=== PATIENT | female | born 1995 ===

== ENCOUNTER 2017-08-22 01:41 | Emergency (ER) | payer MEDICAID ==
[2017-08-22 02:04] VITALS: BMI 28.8
[2017-08-22 02:06] VITALS: BP 111/68; PULSE 72; RESP 16; TEMP 97.8; O2SAT 99
[2017-08-22] MEDS ORDERED: Naproxen 500 MG TAB PO STA (02:47)
[2017-08-22] MEDS ORDERED: Naproxen 500 MG TAB PO ONE (03:17)
--- NOTE | 2017-08-22 04:47 | ED PDOC ---
Upper Extremity Pain/Injury Time Seen by Provider: 08/22/17 02:25 Chief Complaint (Nursing): Finger,Hand,&Wrist Chief Complaint (Provider): Finger,Hand,&Wrist History Per: Patient History/Exam Limitations: no limitations Onset/Duration Of Symptoms: Hrs (x2) Current Symptoms Are (Timing): Still Present Additional Complaint(s): 21 year old female, right-hand dominant, presents to ED with a complaint of right sided wrist pain radiating to right hand status post fall while rollerskating 2 hours prior to arrival. Patient rates pain currently at 8/10. She denies taking any medication for relief, head injury, LOC or other extremity pain. LMP: 07/29/17. PMD: Alisson Grimaldo MD Past Medical History Reviewed: Historical Data, Nursing Documentation, Vital Signs Vital Signs: Last Vital Signs Temp 97.8 F 08/22/17 02:04 Pulse 72 08/22/17 02:04 Resp 16 08/22/17 02:04 BP 111/68 08/22/17 02:04 Pulse Ox 99 08/22/17 02:04 - Medical History PMH: Asthma - Surgical History Surgical History: No Surg Hx - Family History Family History: States: Unknown Family Hx - Social History Current smoker - smoking cessation education provided: No Alcohol: None Drugs: Denies - Home Medications Home Medications: Ambulatory Orders Medication Instructions Recorded Naproxen 500 mg PO BID PRN #20 tab 08/22/17 traMADol [Ultram] 50 mg PO Q6 PRN #12 tab 08/22/17 - Allergies Allergies/Adverse Reactions: Allergies Allergy/AdvReac Type Severity Reaction Status Date / Time No Known Allergies Allergy Verified 08/22/17 02:04 Review of Systems ROS Statement: Except As Marked, All Systems Reviewed And Found Negative Musculoskeletal: Positive for: Hand Pain (right-sided with wrist pain). Negative for: Arm Pain, Leg Pain Neurological: Negative for: Other (head injury or LOC) Physical Exam - Reviewed Nursing Documentation Reviewed: Yes Vital Signs Reviewed: Yes - Physical Exam Comments: GENERAL APPEARANCE: Patient is awake, alert, oriented x 3, in no acute distress. SKIN: Warm, dry; (-) cyanosis. ENT: Mucus membranes moist. NECK: Supple, FROM WRIST: (+) Diffuse tenderness, most notable at distal radius, with decreased ROM of right wrist secondary to pain. (+) small effusion. (-) skin break (-) overlying skin changes (-) ecchymosis (-) deformity. (-) snuff-box tenderness. Elbow, hand and digits: (+) mild tenderness to dorsum right 3rd MCP(-) ecchymosis, (-) edema. Sensation intact throughout. Patient is resisting flexion of digits secondary to wrist pain. NEURO AND PSYCH: Mental status as above. - ECG O2 Sat by Pulse Oximetry: 99 (RA) Pulse Ox Interpretation: Normal Medical Decision Making Medical Decision Making: Initial Impression: Wrist injury s/p fall, probable wrist fracture Initial Plan: * Naproxen 500mg PO * Ultram 50mg PO * Xray hand (right) * Xray wrist (right) Time: 0247 --Xray wrist: interpreted by provider Shane MOTA. Significant for a transverse , non-displaced fracture of distal radius. --Xray of right hand: (-) fracture (-) dislocation as read by Shane MOTA Time: 0330 --Volar splint applied to right wrist by critical power technician. Placement and application verified by Shane MOTA. Neurovascularly intact after placement. Patient also placed in sling. Time: 0345 On re-evaluation, patient reports improvement of symptoms. On exam, patient remains AAOx3, in no acute distress. On exam, neck is supple, lungs CTA, cardiac RRR, abdomen is soft and non-tender, neuro exam shows no focal findings. VSS, stable for discharge. Diagnostic results d/w the patient in great detail. Dx of acute wrist pain, radius fracture s/p fall d/w the patient. Based on history, exam and diagnostic results plan will be for discharge and outpatient ortho follow up. Advised to follow up with primary care physician in 1-2 days without fail. Advised to take medication as prescribed. Return to the emergency room at any time for any new or worsening symptoms. Patient states she fully agrees with and understands discharge instructions. States that she agrees with the plan and disposition. Verbalized and repeated discharge instructions and plan. I have given the patient opportunity to ask any additional questions. Scribe Attestation: Documented by Stacey Smith, acting as a scribe for Mona Lynn PA-C. Provider Scribe Attestation: All medical record entries made by the Scribe were at my direction and personally dictated by me. I have reviewed the chart and agree that the record accurately reflects my personal performance of the history, physical exam, medical decision making, and the department course for this patient. I have also personally directed, reviewed, and agree with the discharge instructions and disposition. Disposition - Clinical Impression Clinical Impression: Radius distal fracture - Patient ED Disposition Is Patient to be Admitted: No Counseled Patient/Family Regarding: Studies Performed, Diagnosis, Need For Followup, Rx Given - Disposition Referrals: Alisson Grimaldo MD [Primary Care Provider] - Lyn Hawkins MD [Staff Provider] - Disposition: Routine/Home Disposition Time: 03:46 Condition: STABLE Additional Instructions: FOLLOW UP WITH BOTH YOUR PMD AND ORTHO (REFERRAL PROVIDED) WITHIN 1-2 DAYS. RETURN TO ED WITH ANY NEW OR WORSENING SYMPTOMS. KEEP SPLINT DRY. Prescriptions: Naproxen 500 mg PO BID PRN #20 tab PRN Reason: Pain, Moderate (4-7) traMADol [Ultram] 50 mg PO Q6 PRN #12 tab PRN Reason: Pain, Severe (8-10) Instructions: Wrist Fracture (DC), Radius Fracture Forms: [employer] (Telugu) Print Language: SINHALA - POA Present On Arrival: Falls Or Trauma
--- NOTE | 2017-08-22 08:09 | RAD ---
PROCEDURE: Right Hand Radiographs. HISTORY: s/p fall COMPARISON: None. FINDINGS: BONES: There is impacted fracture of the distal radius with the distal ulna appearing intact. Neutral angulation noted. Carpal bones appear diffusely intact. JOINTS: No subluxation or dislocation. SOFT TISSUES: Normal. OTHER FINDINGS: None. IMPRESSION: Impacted fracture distal right radius, without dislocation.
--- NOTE | 2017-08-22 08:11 | RAD ---
PROCEDURE: Right Wrist Radiographs. HISTORY: s/p fall COMPARISON: None. FINDINGS: BONES: An impacted fractures of the distal right radius is appreciated. The distal ulna appears intact as well as the carpal bones diffusely. No significant angulation is appreciated involving the major distal radial fracture fragment. The navicular bone appears intact. JOINTS: No subluxation or dislocation. SOFT TISSUES: Normal. OTHER FINDINGS: None. IMPRESSION: Impacted distal radial fracture without angulation or dislocation identified. Carpal bones all appear intact.
== END 2017-08-22 04:03 | disposition home or self-care (01) ==
LOC: H.ER 01:41
DX: S52.501A Unspecified fracture of the lower end of right radius, initial encounter for closed fracture (principal); Y93.51 Activity, roller skating (inline) and skateboarding; Y92.89 Other specified places as the place of occurrence of the external cause